=== PATIENT | male | born 1990 | race Caucasian/White ===

== ENCOUNTER 2016-11-17 11:32 | Emergency (ER) | payer OTHER ==
[2016-11-17 12:28] LABS: BILIRUBIN NEGATIVE (NEGATIVE); BLOOD 1+ Ery/uL (NEGATIVE); CLARITY CLEAR (CLEAR); COLOR YELLOW (YELLOW); GLUCOSE (U) 1+ mg/dL (NORMAL); KETONE (U) NEGATIVE (NEGATIVE); LEUKOCYTES NEGATIVE Leu/uL (NEGATIVE); NITRITE NEGATIVE (NEGATIVE); PROTEIN NEGATIVE (NEGATIVE); UROBILINOGEN 0.2 mg/dL (0.2-1.0); pH 5.5 (5.0-9.0)
[2016-11-17 12:29] LABS: BASOPHIL 0.4 % (0-2); EOSINOPHIL 1.4 % (0-5); HCT 46.6 % (42.0-52.0); HGB 16.1 g/dl (13.2-18.0); LYMPHOCYTE 13.8 % (15-48); MCH 29.2 pg (25.0-31.0); MCHC 34.5 g/dL (32.0-36.0); MCV 84.6 fL (78.0-100.0); MONOCYTE 11.6 % (0-12); MPV 8.6 fL (6.0-9.5); NEUTROPHIL 72.8 % (41-80); PLT 315 K/uL (150-400); RBC 5.51 M/uL (4.70-6.00); RDW 12.4 % (11.5-14.0); WBC 7.3 K/uL (4.0-10.5)
[2016-11-17 12:33] LABS: BACTERIA TRACE; SQUAMOUS EPITHELIAL CELLS RARE; URINARY WBC RARE
[2016-11-17 13:02] LABS: BILIRUBIN - TOTAL 1.1 mg/dL (0.1-1.0); GLOBULIN (CALCULATION) 2.8 g/dL (2.2-4.2); POTASSIUM 4.1 mmol/L (3.5-5.1); TOTAL PROTEIN 7.8 g/dL (6.4-8.3)
== END 2016-11-17 16:17 | disposition home or self-care (01) ==
LOC: FER 11:32
PROVIDERS: Nurse Practitioner
DX: R10.9 Unspecified abdominal pain (principal); R19.7 Diarrhea, unspecified; R11.2 Nausea with vomiting, unspecified
CPT/HCPCS: 36415; 80053; 81001; 82150; 83690; 85025; 85651; 87339; C9113; Q9967